=== PATIENT | female | born 1990 | race Caucasian/White ===

== ENCOUNTER 2018-04-13 15:46 | Emergency (ER) | payer OTHER ==
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
[2018-04-13 16:08] VITALS: BP 115/44; PULSE 88; TEMP 98.2; BMI 28.3
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
== END 2018-04-13 17:52 | disposition home or self-care (01) ==
LOC: JERFT 15:46
DX: S16.1XXA Strain of muscle, fascia and tendon at neck level, initial encounter (principal); V43.52XA Car driver injured in collision with other type car in traffic accident, initial encounter; Y92.488 Other paved roadways as the place of occurrence of the external cause; Y93.89 Activity, other specified; Y99.8 Other external cause status
CPT/HCPCS: 84703; 99281-25

== ENCOUNTER 2020-01-04 14:48 | Emergency (ER) | payer OTHER ==
[2020-01-04] MEDS ORDERED: SODIUM CHLORIDE 1,000 ML IV STA (14:55)
--- NOTE | 2020-01-04 14:55 | PDOC ---
Rapid Medical Evaluation Time Seen by Provider: 01/04/20 14:50 Medical Evaluation: Allergies Allergy/AdvReac Type Severity Reaction Status Date / Time No Known Allergies Allergy Verified 04/13/18 16:04 01/04/20 14:50 I performed a brief in-person evaluation of this patient. Pt is a 29 y/o female who presents to the ED [facility] . Her LMP was 12/01/19. She was looking to do a medical but was sent to the ED for further evaluation of ectopic. The patient admits to left lower back pain but has baseline back pain. Pt is not having any vaginal bleeding. Pertinent physical exam findings: No reproducible abdominal tenderness to palpation, nontoxic, speaking in full sentences. I have ordered the following: labs, US, type and screen Patient to proceed to ED for further evaluation. Discharge Disposition - Diagnosis Encounter for assessment for suspected ectopic - Referrals - Patient Instructions - Post Discharge Activity
[2020-01-04 14:59] VITALS: BP 100/60; TEMP 98.6; BMI 31.4
--- NOTE | 2020-01-04 15:35 | PDOC ---
History of Present Illness - General Chief Complaint: ,Possible Stated Complaint: POS [facility]OPIC [facility]REG[facility] Time Seen by Provider: 01/04/20 14:50 History Source: Patient Exam Limitations: No Limitations - History of Present Illness Initial Comments: 01/04/20 15:35 29-year-old female history of GC chlamydia as a teenager, frequent vaginal candidiasis, bacterial vaginosis, sciatica, fibrocystic ovarian syndrome, , 2 termination of , x2, LMP December 01, 2019 sent in by [facility] for rule out ectopic . Patient states she took a home test last week which was positive, does not want this theref ore went to [facility] today in attempt to terminate. Patient complains of slight left lower pelvic pain, as per physician at [facility] he was unable to view an IUP and sent patient for official ultrasound. Patient denies vaginal bleeding, vaginal discharge, urinary symptoms, fever, chills, vomiting, diarrhea or any other complaints. ROS: as above PE: GENERAL: well-appearing, NAD HEAD: NCAT EYES: Pupils equal, round and reactive to light, sclera anicteric, conjunctiva clear ENT: pharynx: no erythema, no exudate, uvula midline NECK: supple CHEST: nontender RESP: clear, no w/r/r CARDIO: rrr, no m/g/r ABD: +BS, soft, nontender, non distended : Deferred BACK: no midline spinal ttp, no CVAT EXTREMITIES: Normal range of motion, no edema NEUROLOGICAL: Normal speech, normal gait SKIN: Warm, Dry 01/04/20 15:44 01/04/20 19:37 Is this a multiple visit Asthma Patient?: No Past History - Medical History Allergies/Adverse Reactions: Allergies Allergy/AdvReac Type Severity Reaction Status Date / Time No Known Allergies Allergy Verified 01/04/20 14:51 Home Medications: Ambulatory Orders Cyclobenzaprine HCl 10 mg PO Q8H PRN #14 tablet 04/13/18 Naproxen [Naprosyn -] 500 mg PO BID #30 tablet 04/13/18 Asthma: No Cancer: No Cardiac Disorders: No COPD: No Diabetes: No HTN: No Seizures: No Thyroid Disease: No - Reproductive History (#): 3 Para: 1 Therapeutic (s) & number: Yes (1 elective) - Immunization History Immunization Up to Date: No - Psycho-Social/Smoking History Smoking Status: No Smoking History: Never smoked Have you smoked in the past 12 months: No Number of Cigarettes Smoked Daily: 0 - Substance Abuse Hx (Audit-C & DAST Scrn) How often the patient has a drink containing alcohol: Never Score: In Men: 4 or > Positive; In Women: 3 or > Positive: 0 Screen Result (Pos requires Nsg. Audit-10AR): Negative *Physical Exam - Vital Signs Last Vital Signs Temp Pulse Resp BP Pulse Ox 98.6 F 110 H 18 100/60 97 01/04/20 14:51 01/04/20 14:51 01/04/20 14:51 01/04/20 14:51 01/04/20 14:51 ED Treatment Course - LABORATORY CBC & Chemistry Diagram: 01/04/20 15:00 01/04/20 15:00 Medical Decision Making - Medical Decision Making 01/04/20 15:42 29-year-old female history of GC chlamydia as a teenager, frequent vaginal candidiasis, bacterial vaginosis, sciatica, fibrocystic ovarian syndrome, , 2 termination of , x2, LMP December 01, 2019 sent in by [facility] for rule out ectopic . Patient states she took a home test last week which was positive, does not want this therefore went to [facility] today in attempt to terminate. Patient complains of slight left lower pelvic pain, as per physician at [facility] he was unable to view an IUP and sent patient for official ultrasound. Patient denies vaginal bleeding, vaginal discharge, urinary symptoms, fever, chills, vomiting, diarrhea or any other complaints. Labs, UA, beta hCG Type and screen Urine Urine culture IV fluids Transvaginal ultrasound Reassess 01/04/20 19:30 bhcg 172.2 Rh+ repeat HR 79 Transvaginal ultrasound: (read by radiology) - intrauterine gestational sac no pole or yolk sac suggesting early gestation, complex left ovarian lesion possibly corpus luteum, ectopic gestation cannot be excluded entirely, short- term follow-up ultrasound is recommended. Patient given strict return precautions Must return for repeat beta hCG and ultrasound in 2 days, return sooner if you develop lower abdominal pain, pelvic pain, vaginal bleeding, or any concerning symptom. Discharge - Discharge Information Problems reviewed: Yes Clinical Impression/Diagnosis: Encounter for assessment for suspected ectopic Condition: Stable Disposition: HOME - Admission No - Follow up/Referral Referrals: ON STAFF,NOT [Primary Care Provider] - - Patient Discharge Instructions Additional Instructions: Return to ED in 2 days for repeat beta hCG and ultrasound Return sooner to the emergency department if you develop abdominal pain, vaginal bleeding, back pain or any concerning symptom - Post Discharge Activity
[2020-01-04 15:42] LABS: BASO % 0.3 % (0-2.0); HEMATOCRIT 40.4 % (32.4-45.2); HEMOGLOBIN 13.4 GM/dL (10.7-15.3); MCH 29.5 pg (25.7-33.7); MCHC 33.3 g/dl (32.0-36.0); MEAN CELL VOLUME 88.5 fl (80-96); MEAN PLT VOLUME 7.6 fl (7.5-11.1); MONO % 5.4 % (3.8-10.2); NEUT % 72.3 % (42.8-82.8); PLATELET COUNT 278 K/MM3 (134-434); RBC 4.56 M/mm3 (3.60-5.2); RDW 13.2 % (11.6-15.6)
[2020-01-04 15:47] LABS: INR 1.04 (0.83-1.09); PROTHROMBIN TIME (PATIENT) 12.3 SEC (9.7-13.0)
[2020-01-04 15:50] LABS: ACTIVATED PTT 29.5 SECONDS (25.2-36.5)
[2020-01-04 16:05] LABS: ALBUMIN 3.6 g/dl (3.4-5.0); BILIRUBIN,TOTAL 0.5 mg/dL (0.2-1); BLOOD UREA NITROGEN 11.5 mg/dL (7-18); CALCIUM 9.3 mg/dL (8.5-10.1); POTASSIUM 3.9 mmol/L (3.5-5.1); TOT PROT 7.1 g/dl (6.4-8.2)
[2020-01-04 17:33] LABS: EPI CELLS >36 /uL (0-25.1); HCG,QUALITATIVE URINE Positive; HYALINE CASTS 4 /uL (0-3.1); URINE APPEARANCE CLOUDY; URINE BACTERIA 2932 /uL (0-1359); URINE BILIRUBIN NEGATIVE (NEGATIVE); URINE COLOR YELLOW; URINE GLUCOSE (UA) NEGATIVE (NEGATIVE); URINE KETONE NEGATIVE (NEGATIVE); URINE LEUK ESTERASE TRACE (NEGATIVE); URINE NITRITE NEGATIVE (NEGATIVE); URINE PROTEIN NEGATIVE (NEGATIVE); URINE RBC 105 /uL (0-23.9); URINE WBC 48 /uL (0-25.8)
[2020-01-04 20:22] VITALS: PULSE 95
== END 2020-01-04 20:25 | disposition home or self-care (01) ==
LOC: SUPCPDRO 14:48 → JER 14:48
PROC: 3E0337Z Introduction of Electrolytic and Water Balance Substance into Peripheral Vein, Percutaneous Approach (ICD-10-PCS; principal; 2020-01-04)
DX: O09.10 Supervision of pregnancy with history of ectopic pregnancy, unspecified trimester (principal); R10.2 Pelvic and perineal pain
CPT/HCPCS: 36415; 76817-TC; 80053; 81003; 84702; 84703; 85025; 85610; 85730; 86769; 86850; 86900; 86901; 87086; 99284-25

== ENCOUNTER 2020-01-06 11:32 | Emergency (ER) | payer OTHER ==
[2020-01-06 11:48] VITALS: TEMP 97.8; BMI 31.4
[2020-01-06] MEDS ORDERED: ACETAMINOPHEN 500 MG TABLET (FP) PO ONE (12:02)
--- NOTE | 2020-01-06 12:05 | PDOC ---
Rapid Medical Evaluation Chief Complaint: [facility] Time Seen by Provider: 01/06/20 11:42 Medical Evaluation: Allergies Allergy/AdvReac Type Severity Reaction Status Date / Time No Known Allergies Allergy Verified 01/04/20 14:51 Vital Signs Temp Pulse Resp BP Pulse Ox 97.8 F 96 H 17 101/57 L 99 01/06/20 11:45 01/06/20 11:45 01/06/20 11:45 01/06/20 11:45 01/06/20 11:45 01/06/20 12:03 CC: left pelvic pain, no other complaints, lmp 11/30 Exam: no cva tenderness, left suprapubic tenderness Plan: labs, urine, tylenol Discharge Disposition - Diagnosis Abdominal pain - Discharge Dispostion Last Admission D/C Date: 04/07/14 - Referrals - Patient Instructions - Post Discharge Activity
--- NOTE | 2020-01-06 12:19 | PDOC ---
History of Present Illness - General Chief Complaint: BHCG Stated Complaint: ECTOPIC Time Seen by Provider: 01/06/20 11:42 History Source: Patient Exam Limitations: No Limitations - History of Present Illness Initial Comments: 01/06/20 12:15 29-year-old female history of GC chlamydia as a teenager, frequent vaginal candidiasis, bacterial vaginosis, sciatica, fibrocystic ovarian syndrome, , 2 termination of , x2, LMP December 01, 2019 seen in ED 2 days ago told to return to today for repeat BHCG and TVUS as previous was inconclusive. Beta HCG on 01/03 was 172. Pt has had persistent LLQ / suprapubic pain which has no increased in intensity since Monday. Pt has no had any vaginal bleeding or discharge. Of note Pt does not want this . Pt otherwise denies: fevers, chills, syncope, lightheadedness, dizziness, headaches, neck pain, chest pain, shortness of breath, palpitations, back pain, nausea, vomiting, diarrhea, constipation. Past History - Medical History Allergies/Adverse Reactions: Allergies Allergy/AdvReac Type Severity Reaction Status Date / Time No Known Allergies Allergy Verified 01/04/20 14:51 Home Medications: Ambulatory Orders Cyclobenzaprine HCl 10 mg PO Q8H PRN #14 tablet 04/13/18 Naproxen [Naprosyn -] 500 mg PO BID #30 tablet 04/13/18 Asthma: No Cancer: No Cardiac Disorders: No COPD: No Diabetes: No HTN: No Seizures: No Thyroid Disease: No - Reproductive History (#): 3 Para: 1 Therapeutic (s) & number: Yes (1 elective) - Immunization History Immunization Up to Date: No - Psycho-Social/Smoking History Smoking Status: No Smoking History: Never smoked Have you smoked in the past 12 months: No Number of Cigarettes Smoked Daily: 0 - Substance Abuse Hx (Audit-C & DAST Scrn) How often the patient has a drink containing alcohol: Never Score: In Men: 4 or > Positive; In Women: 3 or > Positive: 0 Screen Result (Pos requires Nsg. Audit-10AR): Negative *Physical Exam - Vital Signs Last Vital Signs Temp Pulse Resp BP Pulse Ox 97.8 F 96 H 17 101/57 L 99 01/06/20 11:45 01/06/20 11:45 01/06/20 11:45 01/06/20 11:45 01/06/20 11:45 - Physical Exam 01/06/20 12:17 Gen: AAOx 3, no acute distress, comfortable, no signs of respiratory distress HENT: atraumatic, normocephalic with no laceration or contusion. Nasal mucosa without erythema. Oropharynx without erythema or exudates. Mucous membranes moist. EYES: PERRL, EOM intact, conjunctiva pink NECK: supple; trachea midline; no JVD, no lymphadenopathy, or thyromegaly CV: RRR no murmurs, gallops, or rubs. CHEST: CTA b/l no wheezing, rales or rhonchi ABD: +BS/ND. mildly TTP over LLQ and suprapubic region no guarding or rebound; rest of abdomen nonttp soft, no rebound, no guarding Pelvic: deferred EXTREMITY: no cyanosis or erythema. 2+ dorsalis pedis, posterior tibial, and radial pulse. No pedal edema; no calf swelling or tenderness SKIN: no rash, warm and dry, no diaphoresis HEME: no purpura or ecchymosis NEURO: normal speech, CN II-XII intact, sensation intact, normal gait, no cerebellar deficits MS: 5/5 strength in all extremities, FROM intact in all extremities. ED Treatment Course - LABORATORY CBC & Chemistry Diagram: 01/06/20 12:10 01/06/20 12:10 - RADIOLOGY Radiology Studies Ordered: Category Date Time Status TRANSVAGINAL US PREG [US] Stat Ultrasound 01/06/20 12:13 Ordered Medical Decision Making - Medical Decision Making 01/06/20 12:18 29-year-old female history of GC chlamydia as a teenager, frequent vaginal candidiasis, bacterial vaginosis, sciatica, fibrocystic ovarian syndrome, , 2 termination of , x2, LMP December 01, 2019 here for repeat Beta HCG and TVUS VSS US from 01/03 shows: Intrauterine gestational sac like structure compatible with 5 weeks gestation correlation with serial quantitative serum beta hCG level and close follow-up ultrasound is needed likely hemorrhagic corpus luteum cyst in the left ovary measuring 2.6 cm Will repeat Beta HCG UA labs and TVUS RH+ Will reassess based on results and consult CAREER DEVELOPMENT SPECIALIST as needed Ultrasound shows a fluid collection within the endometrial cavity that has the appearance of a gestational sac mean sac diameter measurements correspond to a gestational age of approximately 5 weeks no yolk sac or pole are identified and therefore the viability of the gestation is uncertain there has been little significant changes since the prior study of 01/03 correlation with serial beta hCG and follow-up ultrasound are recommended there is a little small left ovarian cyst. Most likely the etiology of the left lower quadrant pain. Beta-hCG has more than doubled increasing from 172 to 455. Labs within normal limits UA shows no sign of UTI Patient to follow-up with DAMPENER OPERATOR without fail within 5 to 7 days or return to the ED for repeat ultrasound and beta-hCG to confirm intrauterine and increasing beta-hCG. Patient is safe and stable for discharge strict return precautions as well as signs and symptoms for immediate return to the ED explained to patient. Patient understands the need to follow-up with DAMPENER OPERATOR as well as the importance. Supportive care instructions explained and given to pt. Reasons to return emergently to ER explained and given. Importance of follow up with PMD and other specialists as indicated stressed to pt. Pt verbalized understanding of instructions. Pt to follow up with PMD in 2 days. Discharge - Discharge Information Problems reviewed: Yes Clinical Impression/Diagnosis: Abdominal pain, with 5 completed weeks gestation Condition: Stable Disposition: HOME - Follow up/Referral Referrals: Dilshad Kraft MD [Staff Physician] - - Patient Discharge Instructions Patient Printed Discharge Instructions: DI for Abdominal Pain -- Early Additional Instructions: YOU MUST FOLLOW UP WITH DAMPENER OPERATOR - Post Discharge Activity Work/Back to School Note: Back to Work
[2020-01-06] MEDS ORDERED: ACETAMINOPHEN 500 MG TABLET (FP) ONE (12:23)
[2020-01-06 12:27] LABS: EOS % 0.2 % (0-4.5); HEMATOCRIT 39.2 % (32.4-45.2); HEMOGLOBIN 12.9 GM/dL (10.7-15.3); LYMPH % 29.8 % (8-40); MCH 28.8 pg (25.7-33.7); MCHC 32.9 g/dl (32.0-36.0); MEAN CELL VOLUME 87.5 fl (80-96); MEAN PLT VOLUME 7.3 fl (7.5-11.1); MONO % 7.2 % (3.8-10.2); NEUT % 61.8 % (42.8-82.8); PLATELET COUNT 272 K/MM3 (134-434); RBC 4.48 M/mm3 (3.60-5.2); RDW 13.4 % (11.6-15.6); WHITE BLOOD COUNT 9.1 K/mm3 (4.0-10.0)
[2020-01-06 13:01] LABS: ALBUMIN 3.6 g/dl (3.4-5.0); BILIRUBIN,TOTAL 0.5 mg/dL (0.2-1); CALCIUM 9.1 mg/dL (8.5-10.1); CREATININE 0.8 mg/dL (0.55-1.3); TOT PROT 7.1 g/dl (6.4-8.2)
[2020-01-06 13:02] LABS: EPI CELLS 27 /uL (0-25.1); HYALINE CASTS 1 /uL (0-3.1); URINE APPEARANCE CLEAR; URINE BACTERIA 1137 /uL (0-1359); URINE BILIRUBIN NEGATIVE (NEGATIVE); URINE COLOR YELLOW; URINE GLUCOSE (UA) NEGATIVE (NEGATIVE); URINE KETONE NEGATIVE (NEGATIVE); URINE LEUK ESTERASE NEGATIVE (NEGATIVE); URINE NITRITE NEGATIVE (NEGATIVE); URINE PROTEIN NEGATIVE (NEGATIVE); URINE RBC 53 /uL (0-23.9); URINE WBC 16 /uL (0-25.8)
[2020-01-06 13:29] VITALS: BP 100/60; PULSE 88
== END 2020-01-06 13:26 | disposition home or self-care (01) ==
LOC: JER 11:32
DX: R10.9 Unspecified abdominal pain (principal); Z3A.01 Less than 8 weeks gestation of pregnancy
CPT/HCPCS: 36415; 76817-TC; 80053; 81003; 84702; 85025; 86850; 86900; 86901; 87086; 99284-25